=== PATIENT | female | born 1935 | race Caucasian/White ===

== ENCOUNTER 2025-01-09 15:45 | Emergency (ER) | payer MEDICARE ==
[~2025-01-09] VITALS: Ht 167.6 cm; Wt 81.6 kg
[2025-01-09 15:45] VITALS: TEMP 98.3
[2025-01-09] MEDS ORDERED: ACETAMINOPHEN ES 500 MG TABLET ONE (19:36)
[2025-01-09] MEDS: ACETAMINOPHEN 325 MG TABLET PO ONE (19:46)
[2025-01-09 20:25] VITALS: BP 132/80; O2SAT 98
== END 2025-01-09 20:26 | disposition home or self-care (01) ==
LOC: ER 16:02
DX: S16.1XXA Strain of muscle, fascia and tendon at neck level, initial encounter (principal); S80.02XA Contusion of left knee, initial encounter; S80.01XA Contusion of right knee, initial encounter; M47.812 Spondylosis without myelopathy or radiculopathy, cervical region; E03.9 Hypothyroidism, unspecified; Z88.2 Allergy status to sulfonamides; W01.0XXA Fall on same level from slipping, tripping and stumbling without subsequent striking against object, initial encounter; Y93.89 Activity, other specified; Y92.89 Other specified places as the place of occurrence of the external cause; Y99.8 Other external cause status
CPT/HCPCS: 70450-TC; 72125-TC; 72131-TC; 73564-TC; 73590-TC

== ENCOUNTER 2025-03-18 21:08 | Inpatient (IN) | payer MEDICARE ==
[~2025-03-18] VITALS: Ht 180.3 cm; Wt 99.8 kg
[2025-03-18] MEDS ORDERED: MORPHINE SULFATE INJ 2 MG/ML DISP.SYRIN ONE (21:18)
[2025-03-18] MEDS ORDERED: ONDANSETRON HCL/PF 4 MG/2 ML VIAL ONE ×2 (21:18→22:56)
[2025-03-18] MEDS: ONDANSETRON HCL/PF 4 MG/2 ML VIAL IVP ONE (21:22)
[2025-03-18] MEDS: IV NS 0.9% 500 ML BAG IV ONE (21:22)
[2025-03-18] MEDS: MORPHINE SULFATE INJ 2 MG/ML DISP.SYRIN IV ONE (21:22)
[2025-03-18 21:50] LABS: PLATELET COUNT (AUTO) 336 K/uL (150-450); RED BLOOD CELL COUNT(AUTO) 4.72 MIL/uL (4.0-5.2); RED CELL DISTRIBUTION WIDTH 14.3 % (11.5-15.0); WHITE BLOOD COUNT (AUTO) 15.0 K/uL (4.3-11.0)
[2025-03-18] MEDS ORDERED: Magnesium 1GM/D5W 100ML PREMIX 100 ML IV ONE ×2 (22:01→22:39)
[2025-03-18] MEDS ORDERED: DILTIAZEM HCL 50 MG IV ONE (22:02)
[2025-03-18 22:04] LABS: CALCIUM, SERUM 9.5 mg/dL (8.5-10.1); CREATININE 1.2 mg/dL (0.6-1.3); SODIUM SERUM 131 mmol/L (136-145); UREA NITROGEN, BLOOD 25 mg/dL (7-18)
[2025-03-18] MEDS: DILTIAZEM HCL 50 MG IV IV ONE (22:07)
[2025-03-18] MEDS: Magnesium 1GM/D5W 100ML PREMIX 200 ML IV ONE (22:08)
[2025-03-18 22:11] LABS: ASPARTATE AMINOTRANSFERASE 15 U/L (15-37); TOTAL PROTEIN, SERUM 8.3 g/dL (6.4-8.2)
[2025-03-18] MEDS ORDERED: HYDROMORPHONE 1 MG/1 ML DISP.SYRIN ONE (22:56)
[2025-03-18] MEDS ORDERED: PIPERACI/TAZO 3.375GM/D5W 50ML PB IV ONE (22:56)
[2025-03-18] MEDS: HYDROMORPHONE 1 MG/1 ML DISP.SYRIN IV ONE (23:02)
[2025-03-18] MEDS: ONDANSETRON HCL/PF - ER 4 MG/2 ML VIAL IV ONE (23:03)
[2025-03-18] MEDS ORDERED: AMIODARONE 150 MG/3 ML VIAL IV ONE (23:04)
[2025-03-18] MEDS: AMIODARONE 150 MG/3 ML VIAL IV ONE ×2 (23:15→23:30)
[2025-03-18] MEDS: PIPERACILLIN /TAZOBACTAM 3.375 G in IV D5W 50 ML IV ONE (23:48)
[2025-03-19] VITALS (19 sets, daily range): BP systolic 112–152; BP diastolic 61–97; TEMP 98–99.5; O2SAT 95–99
[2025-03-19 00:20] LABS: LACTIC ACID 2.1 mmol/L (0.4-2.0)
[2025-03-19 00:59] LABS: APPEARANCE,URINE CLEAR (CLEAR); BLOOD, URINE 1+ Ery/uL (NEGATIVE); LEUKOCYTE ESTERASE ,URINE NEGATIVE (NEGATIVE); NITRITE, URINE NEGATIVE (NEGATIVE); UGLUCOSE NEGATIVE (NEGATIVE)
[2025-03-19 01:16] LABS: ADD URINE CULTURE NO
[2025-03-19] MEDS ORDERED: ANESTHESIA TRAY IN PYXIS 1 EA TRAY MC ONE (01:37)
[2025-03-19] MEDS ORDERED: LIDOCAINE 1%-EPI 1:100,000 20 ML VIAL ONE (01:38)
[2025-03-19] MEDS ORDERED: BUPIVACAINE 0.5 % PF 150 MG/30 ML VIAL ONE (01:38)
[2025-03-19] MEDS ORDERED: SUGAMMADEX SODIUM 200 MG/2 ML VIAL IV ONE ×2 (01:55→04:02)
[2025-03-19] MEDS ORDERED: MIDAZOLAM HCL 2 MG/2ML VIAL ONE (01:55)
[2025-03-19] MEDS ORDERED: ROCURONIUM BROMIDE 50 MG/5 ML ONE ×2 (01:55→01:56)
[2025-03-19] MEDS ORDERED: FENTANYL PF 100MCG/2ML AMPUL ONE (01:55)
[2025-03-19] MEDS ORDERED: MORPHINE SULFATE INJ 4 MG/ML DISP.SYRIN ONE (01:57)
[2025-03-19] MEDS ORDERED: DOSING PER PHARMACY-AMIODARONE DRIP XX PRN (02:00)
[2025-03-19] MEDS ORDERED: Z GUARD REMEDY 4 OZ OINT TP PRN (02:00)
[2025-03-19] MEDS ORDERED: PIPERACI/TAZO 3.375GM/D5W 50ML PB IV ONE (02:06)
[2025-03-19 02:49] LABS: INR 0.97 (0.91-1.10)
[2025-03-19] MEDS ORDERED: ALBUMIN 5% 250 ML IV ONE (02:52)
[2025-03-19] MEDS ORDERED: MORPHINE SULFATE INJ 2 MG/ML DISP.SYRIN IV PRN ×2 (05:30)
[2025-03-19] MEDS: IV NS 0.9% 1,000 ML IV PRN ×2 (06:04→16:20)
[2025-03-19] MEDS: AMIODARONE 450 MG in IV D5W 241 ML IV PRN (06:53)
[2025-03-19] MEDS: PIPERACILLIN /TAZOBACTAM 3.375 G in IV D5W 50 ML IV SCH (07:37)
[2025-03-19] MEDS: IV NS 0.9% 500 ML IV ONE ×2 (08:10→13:57)
[2025-03-19] MEDS: PANTOPRAZOLE 40 MG VIAL IV SCH (08:13)
[2025-03-19] MEDS: MICAFUNGIN SODIUM 100 MG in IV NS 0.9% 100 ML IV SCH (08:14)
[2025-03-19] MEDS: MORPHINE SULFATE INJ 2 MG/ML DISP.SYRIN IV PRN ×2 (08:14→13:55)
[2025-03-19] MEDS ORDERED: FLUCONAZOLE IN NS,PREMIX 200 MG in PREMIX 1 EA IV SCH (09:00)
[2025-03-19 12:00] LABS: PLATELET COUNT (AUTO) 274 K/uL (150-450); RED BLOOD CELL COUNT(AUTO) 4.37 MIL/uL (4.0-5.2); RED CELL DISTRIBUTION WIDTH 14.0 % (11.5-15.0); WHITE BLOOD COUNT (AUTO) 13.0 K/uL (4.3-11.0)
[2025-03-19] MEDS: ONDANSETRON HCL/PF 4 MG/2 ML VIAL IVP PRN (12:10)
[2025-03-19 12:27] LABS: CALCIUM, SERUM 7.7 mg/dL (8.5-10.1); CREATININE 1.4 mg/dL (0.6-1.3); PHOSPHORUS 2.9 mg/dL (2.5-4.9); SODIUM SERUM 130.0 mmol/L (136-145); UREA NITROGEN, BLOOD 26.0 mg/dL (7-18)
[2025-03-19 13:01] LABS: CREATININE, URINE 112.6 MG/DL (30.0-125.0); URINE SODIUM, RANDOM 43.0 mmol/l (40-220); URINE TOTAL PROTEIN 204.3 mg/dL (0-11.9)
[2025-03-19] MEDS ORDERED: MONT10TA22 PO (13:21)
[2025-03-19] MEDS ORDERED: LEVO100T9 PO (13:21)
[2025-03-19] MEDS ORDERED: FOLI0.4T6 PO (13:21)
[2025-03-19] MEDS ORDERED: SUMA50TA PO (13:21)
[2025-03-19] MEDS ORDERED: MELO-107 PO (13:21)
[2025-03-19] MEDS ORDERED: SERT50TA PO (13:21)
[2025-03-19] MEDS ORDERED: PRED1TAB PO (13:21)
[2025-03-19] MEDS: ENOXAPARIN SODIUM 30 MG/0.3 ML DISP.SYRIN SQ SCH (20:59)
[2025-03-20] VITALS (36 sets, daily range): BP systolic 92–135; BP diastolic 51–103; TEMP 97.4–100.7; O2SAT 95–100
[2025-03-20] MEDS: ACETAMINOPHEN 650 MG/SUPP.RECT RC PRN (04:44)
[2025-03-20 05:27] LABS: PLATELET COUNT (AUTO) 272 K/uL (150-450); RED BLOOD CELL COUNT(AUTO) 3.99 MIL/uL (4.0-5.2); RED CELL DISTRIBUTION WIDTH 14.3 % (11.5-15.0); WHITE BLOOD COUNT (AUTO) 15.2 K/uL (4.3-11.0)
[2025-03-20 05:59] LABS: ASPARTATE AMINOTRANSFERASE 30.0 U/L (15-37); CALCIUM, SERUM 7.9 mg/dL (8.5-10.1); CREATININE 1.2 mg/dL (0.6-1.3); PHOSPHORUS 3.0 mg/dL (2.5-4.9); SODIUM SERUM 132.0 mmol/L (136-145); TOTAL PROTEIN, SERUM 6.1 g/dL (6.4-8.2); UREA NITROGEN, BLOOD 22.0 mg/dL (7-18)
[2025-03-20 06:01] LABS: CREATINE KINASE, TOTAL 553.0 U/L (26-192)
[2025-03-20] MEDS: IV D5/ 0.9% NACL 1,000 ML IV SCH (06:26)
[2025-03-20] MEDS: IV D5W 1,000 ML IV PRN (08:56)
[2025-03-20] MEDS: AMIODARONE 450 MG in IV D5W 241 ML IV PRN (11:06)
[2025-03-20] MEDS: METOPROLOL TARTRATE INJ 5 MG/5 ML AMPUL IVP ONE (13:36)
[2025-03-20] MEDS ORDERED: LEVOTHYROXINE INJ 500 MCG VIAL IV SCH (19:30)
[2025-03-20] MEDS: DIGOXIN INJ 0.5 MG/2 ML AMPUL IV ONE (22:10)
[2025-03-21] VITALS (27 sets, daily range): BP systolic 118–169; BP diastolic 51–75; TEMP 97.7–98.2; O2SAT 97–100
[2025-03-21 08:07] LABS: PTH, INTACT 75 pg/mL (15-65)
[2025-03-21] MEDS: LEVOTHYROXINE INJ 100 MCG VIAL IV SCH (08:31)
[2025-03-21] MEDS ORDERED: DEXTROSE 50%-WATER 50 ML DISP.SYRIN IV PRN (10:00)
[2025-03-21] MEDS ORDERED: TPN/PPN PER PHARMACY IV PRN (10:00)
[2025-03-21] MEDS: PPN #1 IV SCH (11:35)
[2025-03-21] MEDS: BLOOD SUGAR DIAGNOSTIC 1 EACH STRIP IN SCH (11:36)
[2025-03-21 12:13] LABS: PLATELET COUNT (AUTO) 196 K/uL (150-450); RED BLOOD CELL COUNT(AUTO) 3.81 MIL/uL (4.0-5.2); RED CELL DISTRIBUTION WIDTH 15.2 % (11.5-15.0); WHITE BLOOD COUNT (AUTO) 11.5 K/uL (4.3-11.0)
[2025-03-21 12:36] LABS: ASPARTATE AMINOTRANSFERASE 26.0 U/L (15-37); CALCIUM, SERUM 8.1 mg/dL (8.5-10.1); CREATININE 1.4 mg/dL (0.6-1.3); PHOSPHORUS 2.5 mg/dL (2.5-4.9); SODIUM SERUM 133.0 mmol/L (136-145); TOTAL PROTEIN, SERUM 5.9 g/dL (6.4-8.2); UREA NITROGEN, BLOOD 20.0 mg/dL (7-18)
[2025-03-21 18:52] LABS: HIV-1/2 ANTIBODY NON REACTIVE (NONREACTIVE)
[2025-03-21] MEDS: DICLOFENAC TOPICAL 100 GM TUBE TP PRN (20:46)
[2025-03-21] MEDS: hydrALAZINE HCL IV 20 MG VIAL IV PRN (21:39)
[2025-03-22] VITALS (32 sets, daily range): BP systolic 87–176; BP diastolic 52–152; TEMP 97.9–98.9; O2SAT 97–100
[2025-03-22 03:54] LABS: PLATELET COUNT (AUTO) 270 K/uL (150-450); RED BLOOD CELL COUNT(AUTO) 3.63 MIL/uL (4.0-5.2); RED CELL DISTRIBUTION WIDTH 14.1 % (11.5-15.0); WHITE BLOOD COUNT (AUTO) 11.1 K/uL (4.3-11.0)
[2025-03-22 04:09] LABS: ASPARTATE AMINOTRANSFERASE 17.0 U/L (15-37); CALCIUM, SERUM 8.3 mg/dL (8.5-10.1); CREATININE 1.2 mg/dL (0.6-1.3); PHOSPHORUS 2.1 mg/dL (2.5-4.9); SODIUM SERUM 133.0 mmol/L (136-145); TOTAL PROTEIN, SERUM 6.1 g/dL (6.4-8.2); UREA NITROGEN, BLOOD 20.0 mg/dL (7-18)
[2025-03-22] MEDS: IV NS 0.9% 250 ML IV PRN (05:56)
[2025-03-22] MEDS ORDERED: PPN BAG #2 IV SCH (12:47)
[2025-03-22] MEDS: PPN BAG #2 IV SCH (12:54)
[2025-03-22] MEDS: POTASSIUM CL. PREMIX PERIPHER. 50 ML IV SCH (13:32)
[2025-03-22] MEDS: Sodium Phosphate 15 MMOL in IV NS 0.9% 245 ML IV SCH (14:48)
[2025-03-22] MEDS: FAT EMULSION 20% 500 ML in PREMIX 1 EA IV SCH (16:19)
[2025-03-23] VITALS (33 sets, daily range): BP systolic 108–172; BP diastolic 49–93; TEMP 97–98.9; O2SAT 96–100
[2025-03-23 03:42] LABS: PLATELET COUNT (AUTO) 305 K/uL (150-450); RED BLOOD CELL COUNT(AUTO) 3.65 MIL/uL (4.0-5.2); RED CELL DISTRIBUTION WIDTH 14.1 % (11.5-15.0); WHITE BLOOD COUNT (AUTO) 8.3 K/uL (4.3-11.0)
[2025-03-23 03:58] LABS: CALCIUM, SERUM 8.4 mg/dL (8.5-10.1); CREATININE 1.2 mg/dL (0.6-1.3); PHOSPHORUS 2.6 mg/dL (2.5-4.9); SODIUM SERUM 136.0 mmol/L (136-145); UREA NITROGEN, BLOOD 18.0 mg/dL (7-18)
[2025-03-23] MEDS: ENOXAPARIN SODIUM 40 MG/0.4 ML DISP.SYRIN SQ SCH (08:18)
[2025-03-23] MEDS: AMIODARONE 450 MG in IV D5W 241 ML IV PRN ×2 (09:00→09:53)
[2025-03-23] MEDS: POTASSIUM CL. PREMIX PERIPHER. 50 ML IV SCH ×2 (09:31→21:00)
[2025-03-23] MEDS: AMIODARONE 150 MG in IV D5W 100 ML IV ONE (09:38)
[2025-03-23] MEDS: PPN BAG #3 IV SCH (10:11)
[2025-03-23] MEDS ORDERED: DILTIAZEM HCL IV 125 MG in IV NS 0.9% 100 ML IV PRN (11:30)
[2025-03-23] MEDS: DIGOXIN INJ 0.5 MG/2 ML AMPUL IV ONE (11:30)
[2025-03-23] MEDS: DILTIAZEM HCL 25 MG IV IV ONE (11:30)
[2025-03-23] MEDS: ALBUTEROL FS 2.5 MG/3 ML VIAL.NEB NEB PRN (15:52)
[2025-03-23] MEDS: IPRATROPIUM NEB FS 0.5 MG/2.5 ML AMPUL.NEB NEB PRN (15:53)
[2025-03-23] MEDS: FUROSEMIDE 20 MG/2 ML VIAL IV ONE (15:53)
[2025-03-23] MEDS ORDERED: IPRATROPIUM NEB FS 0.5 MG/2.5 ML AMPUL.NEB NEB PRN (16:00)
[2025-03-23] MEDS: METOPROLOL TARTRATE INJ 5 MG/5 ML AMPUL IVP SCH (17:30)
[2025-03-24] VITALS (24 sets, daily range): BP systolic 142–176; BP diastolic 57–79; TEMP 98–98.8; O2SAT 97–100
[2025-03-24] MEDS: PPN BAG #4 IV SCH (03:28)
[2025-03-24 04:26] LABS: PLATELET COUNT (AUTO) 344 K/uL (150-450); RED BLOOD CELL COUNT(AUTO) 3.54 MIL/uL (4.0-5.2); RED CELL DISTRIBUTION WIDTH 14.2 % (11.5-15.0); WHITE BLOOD COUNT (AUTO) 7.6 K/uL (4.3-11.0)
[2025-03-24 04:38] LABS: CALCIUM, SERUM 8.7 mg/dL (8.5-10.1); CREATININE 1.5 mg/dL (0.6-1.3); PHOSPHORUS 2.7 mg/dL (2.5-4.9); SODIUM SERUM 138.0 mmol/L (136-145); UREA NITROGEN, BLOOD 27.0 mg/dL (7-18)
[2025-03-24] MEDS: FUROSEMIDE 20 MG/2 ML VIAL IV ONE (11:29)
[2025-03-24] MEDS ORDERED: DIATR MEGLU/DIATRIZOATE SODIUM 120 ML BOTTLE (GASTROGRAPHIN) ONE (12:24)
[2025-03-24] MEDS: PIPERACILLIN /TAZOBACTAM 3.375 G in IV D5W 100 ML IV SCH (12:25)
[2025-03-24 14:56] LABS: CALCIUM, SERUM 9.0 mg/dL (8.5-10.1); CREATININE 1.4 mg/dL (0.6-1.3); PHOSPHORUS 2.5 mg/dL (2.5-4.9); SODIUM SERUM 137.0 mmol/L (136-145); UREA NITROGEN, BLOOD 32.0 mg/dL (7-18)
[2025-03-24] MEDS: PPN #5 IV SCH (16:02)
[2025-03-24] MEDS: INSULIN REGULAR, HUMAN 100 UNIT/ML 3 ML VIAL SQ PRN (17:08)
[2025-03-24] MEDS: POTASSIUM CL. PREMIX PERIPHER. 50 ML IV SCH (19:10)
[2025-03-24] MEDS ORDERED: POTASSIUM CL. PREMIX PERIPHER. 50 ML IV SCH (20:00)
[2025-03-25] VITALS (27 sets, daily range): BP systolic 98–162; BP diastolic 57–142; TEMP 97.8–99; O2SAT 94–100
[2025-03-25 04:34] LABS: PLATELET COUNT (AUTO) 402 K/uL (150-450); RED BLOOD CELL COUNT(AUTO) 3.62 MIL/uL (4.0-5.2); RED CELL DISTRIBUTION WIDTH 14.5 % (11.5-15.0); WHITE BLOOD COUNT (AUTO) 10.0 K/uL (4.3-11.0)
[2025-03-25 05:11] LABS: CALCIUM, SERUM 9.1 mg/dL (8.5-10.1); CREATININE 1.3 mg/dL (0.6-1.3); PHOSPHORUS 2.0 mg/dL (2.5-4.9); SODIUM SERUM 137.0 mmol/L (136-145); UREA NITROGEN, BLOOD 37.0 mg/dL (7-18)
[2025-03-25 06:07] LABS: *SPE A/G RATIO 1.1 (0.7-1.7); *SPE ALBUMIN 2.6 g/dL (2.9-4.4); *SPE ALPHA-1-GLOBULIN 0.4 g/dL (0.0-0.4); *SPE ALPHA-2-GLOBULIN 0.8 g/dL (0.4-1.0); *SPE BETA GLOBULIN 0.7 g/dL (0.7-1.3); *SPE GLOBULIN, TOTAL 2.4 g/dL (2.2-3.9); *SPE M-SPIKE Not Observed g/dL (Not Observed); *SPE PROTEIN TOTAL 5.0 g/dL (6.0-8.5); *SPEGAMMA GLOBULIN 0.4 g/dL (0.4-1.8)
[2025-03-25] MEDS: Sodium Phosphate 15 MMOL in IV NS 0.9% 245 ML IV ONE (12:46)
[2025-03-25] MEDS: FUROSEMIDE 20 MG/2 ML VIAL IV STA (12:51)
[2025-03-25] MEDS ORDERED: POTASSIUM CL. PREMIX PERIPHER. 50 ML IV SCH (14:00)
[2025-03-25] MEDS: PPN #6 IV SCH (14:12)
[2025-03-25] MEDS: LEVALBUTEROL HCL NEB 1.25 MG/0.5 ML VIAL.NEB NEB SCH (14:47)
[2025-03-25] MEDS: IPRATROPIUM NEB FS 0.5 MG/2.5 ML AMPUL.NEB NEB SCH (14:47)
[2025-03-25 15:49] LABS: CALCIUM, SERUM 8.5 mg/dL (8.5-10.1); CREATININE 1.3 mg/dL (0.6-1.3); PHOSPHORUS 2.9 mg/dL (2.5-4.9); SODIUM SERUM 133.0 mmol/L (136-145); UREA NITROGEN, BLOOD 41.0 mg/dL (7-18)
[2025-03-25] MEDS ORDERED: AMIODARONE 150 MG in IV D5W 100 ML IV ONE (17:00)
[2025-03-25] MEDS: POTASSIUM CL. PREMIX PERIPHER. 50 ML IV SCH ×2 (17:26→19:45)
[2025-03-25] MEDS: AMIODARONE 450 MG in IV D5W 241 ML IV PRN (18:49)
[2025-03-26] VITALS (33 sets, daily range): BP systolic 112–184; BP diastolic 48–109; TEMP 97.4–98.1; O2SAT 92–100
[2025-03-26 04:44] LABS: PLATELET COUNT (AUTO) 425 K/uL (150-450); RED BLOOD CELL COUNT(AUTO) 3.46 MIL/uL (4.0-5.2); RED CELL DISTRIBUTION WIDTH 14.3 % (11.5-15.0); WHITE BLOOD COUNT (AUTO) 11.5 K/uL (4.3-11.0)
[2025-03-26 05:03] LABS: CALCIUM, SERUM 8.6 mg/dL (8.5-10.1); CREATININE 1.4 mg/dL (0.6-1.3); PHOSPHORUS 2.7 mg/dL (2.5-4.9); SODIUM SERUM 131.0 mmol/L (136-145); UREA NITROGEN, BLOOD 49.0 mg/dL (7-18)
[2025-03-26] MEDS: POTASSIUM CL. PREMIX PERIPHER. 50 ML IV SCH (08:05)
[2025-03-26] MEDS: PPN #7 IV SCH (14:32)
[2025-03-26] MEDS: FUROSEMIDE 20 MG/2 ML VIAL IV STA (16:34)
[2025-03-26] MEDS: METOPROLOL TARTRATE INJ 5 MG/5 ML AMPUL IVP ONE (20:34)
[2025-03-26 21:36] LABS: CALCIUM, SERUM 8.7 mg/dL (8.5-10.1); CREATININE 1.6 mg/dL (0.6-1.3); SODIUM SERUM 129.0 mmol/L (136-145); UREA NITROGEN, BLOOD 50.0 mg/dL (7-18)
[2025-03-27] VITALS (32 sets, daily range): BP systolic 104–166; BP diastolic 48–72; TEMP 97–98.9; O2SAT 93–100
[2025-03-27 05:19] LABS: CALCIUM, SERUM 8.4 mg/dL (8.5-10.1); CREATININE 1.7 mg/dL (0.6-1.3); PHOSPHORUS 2.6 mg/dL (2.5-4.9); SODIUM SERUM 125.0 mmol/L (136-145); UREA NITROGEN, BLOOD 57.0 mg/dL (7-18)
[2025-03-27 07:25] LABS: PLATELET COUNT (AUTO) 499 K/uL (150-450); RED BLOOD CELL COUNT(AUTO) 3.63 MIL/uL (4.0-5.2); RED CELL DISTRIBUTION WIDTH 14.4 % (11.5-15.0); WHITE BLOOD COUNT (AUTO) 11.0 K/uL (4.3-11.0)
[2025-03-27] MEDS: POTASSIUM CL. PREMIX PERIPHER. 50 ML IV SCH (11:02)
[2025-03-27] MEDS: PPN #8 IV SCH (11:31)
[2025-03-27] MEDS ORDERED: DIATR MEGLU/DIATRIZOATE SODIUM 120 ML BOTTLE (GASTROGRAPHIN) ONE ×2 (12:39→13:32)
[2025-03-27 16:34] LABS: APPEARANCE,URINE SLIGHTLY CLOUDY (CLEAR)
[2025-03-27 16:44] LABS: SQUAMOUS EPITHELIAL CELL,UR 0-2 /HPF (None Seen)
[2025-03-27] MEDS: Magnesium 1GM/D5W 100ML PREMIX 100 ML IV SCH (17:08)
[2025-03-27 18:10] LABS: EOSINOPHIL,URINE None Seen
[2025-03-28] VITALS (29 sets, daily range): BP systolic 107–158; BP diastolic 57–106; TEMP 97.9–98.8; O2SAT 95–100
[2025-03-28 04:47] LABS: PLATELET COUNT (AUTO) 513 K/uL (150-450); RED BLOOD CELL COUNT(AUTO) 3.70 MIL/uL (4.0-5.2); RED CELL DISTRIBUTION WIDTH 14.3 % (11.5-15.0); WHITE BLOOD COUNT (AUTO) 10.6 K/uL (4.3-11.0)
[2025-03-28 05:00] LABS: CALCIUM, SERUM 8.9 mg/dL (8.5-10.1); CREATININE 1.4 mg/dL (0.6-1.3); PHOSPHORUS 2.5 mg/dL (2.5-4.9); SODIUM SERUM 130.0 mmol/L (136-145); UREA NITROGEN, BLOOD 52.0 mg/dL (7-18)
[2025-03-28 06:18] LABS: EOSINOPHILS % (MANUAL) 4 % (0-4); LYMPHOCYTES % (MANUAL) 5 % (16-48); MONOCYTES % (MANUAL) 4 % (0-11.0); NEUTROPHILS % (MANUAL) 87 (42-76)
[2025-03-28 06:33] LABS: PLATELET ESTIMATE INCREASED
[2025-03-28 07:14] LABS: CREATININE, URINE 19.7 MG/DL (30.0-125.0); URINE SODIUM, RANDOM 11.0 mmol/l (40-220); URINE TOTAL PROTEIN 35.9 mg/dL (0-11.9)
[2025-03-28] MEDS: PPN BAG #9 IV SCH (09:49)
[2025-03-28] MEDS: POTASSIUM CL. PREMIX PERIPHER. 50 ML IV SCH (15:29)
[2025-03-28] MEDS: METOPROLOL TARTRATE 25 MG TABLET PO SCH (15:30)
[2025-03-28] MEDS ORDERED: POTASSIUM CL. PREMIX PERIPHER. 50 ML IV ONE (17:00)
[2025-03-28] MEDS: PPN BAG #10 IV SCH (21:43)
[2025-03-29] VITALS (14 sets, daily range): BP systolic 129–158; BP diastolic 69–89; TEMP 97.9–98.7; O2SAT 96–100
[2025-03-29 07:01] LABS: PLATELET COUNT (AUTO) 586 K/uL (150-450); RED BLOOD CELL COUNT(AUTO) 3.44 MIL/uL (4.0-5.2); RED CELL DISTRIBUTION WIDTH 14.4 % (11.5-15.0); WHITE BLOOD COUNT (AUTO) 11.8 K/uL (4.3-11.0)
[2025-03-29 07:08] LABS: CALCIUM, SERUM 9.0 mg/dL (8.5-10.1); CREATININE 1.3 mg/dL (0.6-1.3); PHOSPHORUS 1.6 mg/dL (2.5-4.9); SODIUM SERUM 133.0 mmol/L (136-145); UREA NITROGEN, BLOOD 45.0 mg/dL (7-18)
[2025-03-29] MEDS: POTASSIUM CL. PREMIX PERIPHER. 50 ML IV SCH (10:00)
[2025-03-29] MEDS ORDERED: POTASSIUM CL. PREMIX PERIPHER. 50 ML IV SCH (10:00)
[2025-03-29] MEDS ORDERED: POTASSIUM PHOSPHATE MM 7.5 MMOL in IV NS 0.9% 100 ML IV SCH (10:00)
[2025-03-29] MEDS: Sodium Phosphate 15 MMOL in IV NS 0.9% 245 ML IV SCH (11:25)
[2025-03-29] MEDS: PPN BAG #11 IV SCH (20:00)
[2025-03-29] MEDS: Magnesium 1GM/D5W 100ML PREMIX 100 ML IV SCH (22:54)
[2025-03-30] VITALS (14 sets, daily range): BP systolic 118–152; BP diastolic 67–80; TEMP 97.7–98.6; O2SAT 96–100
[2025-03-30 07:28] LABS: PLATELET COUNT (AUTO) 609 K/uL (150-450); RED BLOOD CELL COUNT(AUTO) 3.72 MIL/uL (4.0-5.2); RED CELL DISTRIBUTION WIDTH 14.3 % (11.5-15.0); WHITE BLOOD COUNT (AUTO) 11.0 K/uL (4.3-11.0)
[2025-03-30 08:25] LABS: CALCIUM, SERUM 8.7 mg/dL (8.5-10.1); CREATININE 1.2 mg/dL (0.6-1.3); SODIUM SERUM 133.0 mmol/L (136-145); UREA NITROGEN, BLOOD 40.0 mg/dL (7-18)
[2025-03-30 08:26] LABS: PHOSPHORUS 3.4 mg/dL (2.5-4.9)
[2025-03-30] MEDS: MICAFUNGIN SODIUM 100 MG in IV NS 0.9% 100 ML IV SCH (08:50)
[2025-03-30] MEDS ORDERED: FLUCONAZOLE IN NS,PREMIX 200 MG in PREMIX 1 EA IV SCH (09:00)
[2025-03-30] MEDS ORDERED: POTASSIUM CL. PREMIX PERIPHER. 50 ML IV SCH (11:00)
[2025-03-30] MEDS: POTASSIUM CL. PREMIX PERIPHER. 50 ML IV SCH (11:23)
[2025-03-30] MEDS ORDERED: oxyCODONE IR immediate release 5 MG TABLET PO PRN (15:30)
[2025-03-30] MEDS: GUAIFENESIN/D-METHORPHAN HB 5 ML UDC PO PRN (16:00)
[2025-03-30] MEDS: PPN #12 IV SCH (20:59)
[2025-03-31] VITALS (13 sets, daily range): BP systolic 122–139; BP diastolic 54–92; TEMP 97.9–99.3; O2SAT 97–100
[2025-03-31 07:57] LABS: PHOSPHORUS 2.7 mg/dL (2.5-4.9)
[2025-03-31 11:12] LABS: CALCIUM, SERUM 8.5 mg/dL (8.5-10.1); CREATININE 1.2 mg/dL (0.6-1.3); SODIUM SERUM 133.0 mmol/L (136-145); UREA NITROGEN, BLOOD 36.0 mg/dL (7-18)
[2025-03-31] MEDS: POTASSIUM CL. PREMIX PERIPHER. 50 ML IV SCH (13:28)
[2025-03-31] MEDS ORDERED: POTASSIUM CHLORIDE 20 MEQ TAB.PRT.SR PO ONE (13:30)
[2025-03-31] MEDS: ACETAMINOPHEN 325 MG TABLET PO PRN (14:06)
[2025-03-31] MEDS: MAG HYDROX/AL HYDROX/SIMETH 30 ML UDC PO PRN (17:57)
[2025-03-31] MEDS: PPN #13 IV SCH (20:14)
[2025-04-01] VITALS (14 sets, daily range): BP systolic 105–140; BP diastolic 57–75; TEMP 98.1–99.1; O2SAT 98–100
[2025-04-01 07:16] LABS: PLATELET COUNT (AUTO) 515 K/uL (150-450); RED BLOOD CELL COUNT(AUTO) 3.10 MIL/uL (4.0-5.2); RED CELL DISTRIBUTION WIDTH 14.6 % (11.5-15.0); WHITE BLOOD COUNT (AUTO) 11.5 K/uL (4.3-11.0)
[2025-04-01 07:44] LABS: ASPARTATE AMINOTRANSFERASE 21.0 U/L (15-37); CALCIUM, SERUM 8.2 mg/dL (8.5-10.1); CREATININE 1.2 mg/dL (0.6-1.3); PHOSPHORUS 2.5 mg/dL (2.5-4.9); TOTAL PROTEIN, SERUM 5.6 g/dL (6.4-8.2); UREA NITROGEN, BLOOD 34.0 mg/dL (7-18)
[2025-04-01 08:24] LABS: SODIUM SERUM 133.0 mmol/L (136-145)
[2025-04-01] MEDS: POTASSIUM CL. PREMIX PERIPHER. 50 ML IV SCH ×2 (11:03→20:16)
[2025-04-01] MEDS: METOPROLOL TARTRATE INJ 5 MG/5 ML AMPUL IVP ONE (11:38)
[2025-04-01] MEDS: POTASSIUM CHLORIDE 20 MEQ POWDER PACKET PO ONE (12:22)
[2025-04-01] MEDS: Sodium Phosphate 15 MMOL in IV NS 0.9% 245 ML IV SCH (13:14)
[2025-04-01] MEDS: MAGNESIUM HYDROXIDE 30 ML UDC PO PRN (13:22)
[2025-04-01] MEDS ORDERED: POTASSIUM CL. PREMIX PERIPHER. 50 ML IV SCH (14:30)
[2025-04-01 18:32] LABS: CALCIUM, SERUM 8.2 mg/dL (8.5-10.1); CREATININE 1.1 mg/dL (0.6-1.3); SODIUM SERUM 133.0 mmol/L (136-145); UREA NITROGEN, BLOOD 34.0 mg/dL (7-18)
[2025-04-01] MEDS: PPN #14 IV SCH (19:53)
[2025-04-02] VITALS (14 sets, daily range): BP systolic 123–151; BP diastolic 57–82; TEMP 97.5–98.8; O2SAT 98–100
[2025-04-02 00:59] LABS: PHOSPHORUS 2.7 mg/dL (2.5-4.9)
[2025-04-02 06:48] LABS: PLATELET COUNT (AUTO) 595 K/uL (150-450); RED BLOOD CELL COUNT(AUTO) 3.14 MIL/uL (4.0-5.2); RED CELL DISTRIBUTION WIDTH 14.4 % (11.5-15.0); WHITE BLOOD COUNT (AUTO) 10.7 K/uL (4.3-11.0)
[2025-04-02 07:30] LABS: CALCIUM, SERUM 8.5 mg/dL (8.5-10.1); CREATININE 1.3 mg/dL (0.6-1.3); PHOSPHORUS 2.2 mg/dL (2.5-4.9); SODIUM SERUM 139.0 mmol/L (136-145); UREA NITROGEN, BLOOD 31.0 mg/dL (7-18)
[2025-04-02] MEDS: POTASSIUM PHOSPHATE MM 7.5 MMOL in IV NS 0.9% 100 ML IV SCH (10:31)
[2025-04-02] MEDS: POTASSIUM CHLORIDE 20 MEQ POWDER PACKET GT ONE (12:32)
[2025-04-02] MEDS: BISACODYL SUPP (10 MG) 10 MG/SUPP.RECT SUPP.RECT RC SCH (12:38)
[2025-04-02] MEDS: ENSURE CLEAR 237 ML LIQUID (MIX BERRY) PO SCH (12:40)
[2025-04-02 16:40] LABS: CALCIUM, SERUM 8.2 mg/dL (8.5-10.1); CREATININE 1.1 mg/dL (0.6-1.3); SODIUM SERUM 140.0 mmol/L (136-145); UREA NITROGEN, BLOOD 31.0 mg/dL (7-18)
[2025-04-02] MEDS: PPN #15 IV SCH (19:47)
[2025-04-03] VITALS (14 sets, daily range): BP systolic 128–164; BP diastolic 69–83; TEMP 97.7–99; O2SAT 97–100
[2025-04-03 06:49] LABS: PLATELET COUNT (AUTO) 547 K/uL (150-450); RED BLOOD CELL COUNT(AUTO) 2.95 MIL/uL (4.0-5.2); RED CELL DISTRIBUTION WIDTH 14.4 % (11.5-15.0); WHITE BLOOD COUNT (AUTO) 11.6 K/uL (4.3-11.0)
[2025-04-03 07:53] LABS: CALCIUM, SERUM 8.5 mg/dL (8.5-10.1); CREATININE 1.0 mg/dL (0.6-1.3); PHOSPHORUS 2.4 mg/dL (2.5-4.9); SODIUM SERUM 140.0 mmol/L (136-145); UREA NITROGEN, BLOOD 30.0 mg/dL (7-18)
[2025-04-03] MEDS: POTASSIUM CL. PREMIX PERIPHER. 50 ML IV SCH ×2 (12:32→22:30)
[2025-04-03] MEDS: DOCUSATE SODIUM 100 MG CAPSULE PO SCH (15:12)
[2025-04-03] MEDS: SENNOSIDES/DOCUSATE SODIUM 1 TAB TABLET PO SCH (15:12)
[2025-04-03] MEDS ORDERED: IOHEXOL-300 100 ML VIAL IV ONE (15:37)
[2025-04-03] MEDS ORDERED: IV NS 0.9% 250 ML IV ONE (15:37)
[2025-04-03] MEDS ORDERED: CT SWABBABLE VALVE TRANS SET 1 EA INFUS.SET MC ONE (15:37)
[2025-04-03] MEDS: PPN #16 IV SCH (16:41)
[2025-04-03] MEDS: POTASSIUM PHOSPHATE MM 7.5 MMOL in IV NS 0.9% 100 ML IV SCH (16:41)
[2025-04-03] MEDS: METOCLOPRAMIDE HCL 10 MG/2 ML VIAL IV SCH (18:34)
[2025-04-04] VITALS (15 sets, daily range): BP systolic 128–162; BP diastolic 77–93; TEMP 97.8–98.3; O2SAT 96–100
[2025-04-04] MEDS: BISACODYL SUPP (10 MG) 10 MG/SUPP.RECT SUPP.RECT RC SCH (06:19)
[2025-04-04 07:47] LABS: CALCIUM, SERUM 8.8 mg/dL (8.5-10.1); CREATININE 1.2 mg/dL (0.6-1.3); SODIUM SERUM 142.0 mmol/L (136-145); UREA NITROGEN, BLOOD 30.0 mg/dL (7-18)
[2025-04-04 08:14] LABS: PLATELET COUNT (AUTO) 517 K/uL (150-450); RED BLOOD CELL COUNT(AUTO) 3.10 MIL/uL (4.0-5.2); RED CELL DISTRIBUTION WIDTH 14.4 % (11.5-15.0); WHITE BLOOD COUNT (AUTO) 11.1 K/uL (4.3-11.0)
[2025-04-04] MEDS: LORAZEPAM 0.5 MG TABLET PO PRN (09:10)
[2025-04-04] MEDS: POTASSIUM CL. PREMIX PERIPHER. 50 ML IV SCH (10:25)
[2025-04-04 12:04] LABS: PHOSPHORUS 2.4 mg/dL (2.5-4.9)
[2025-04-04] MEDS ORDERED: POTASSIUM PHOSPHATE MM 7.5 MMOL in IV NS 0.9% 100 ML IV SCH (14:00)
[2025-04-04] MEDS ORDERED: oxyCODONE IR immediate release 5 MG TABLET PO PRN (15:30)
[2025-04-04] MEDS: PPN #17 IV SCH (16:10)
[2025-04-04] MEDS: SENNOSIDES/DOCUSATE SODIUM 1 TAB TABLET PO SCH (17:55)
[2025-04-04] MEDS: POTASSIUM CHLORIDE 10 MEQ/50 ML PREMIXED IVPB FOR PERIPHERAL LINE IV SCH (19:54)
[2025-04-04] MEDS: POTASSIUM PHOSPHATE MM 5 MMOL in IV NS 0.9% 100 ML IV SCH (19:59)
[2025-04-04] MEDS: PANTOPRAZOLE 40 MG TABLET.DR PO SCH (22:42)
[2025-04-05] VITALS (9 sets, daily range): BP systolic 143–169; BP diastolic 80–102; TEMP 98.1–100.2; O2SAT 97–100
[2025-04-05] MEDS: METOPROLOL TARTRATE INJ 5 MG/5 ML AMPUL IVP PRN (08:05)
[2025-04-05 08:35] LABS: PLATELET COUNT (AUTO) 512 K/uL (150-450); RED BLOOD CELL COUNT(AUTO) 3.34 MIL/uL (4.0-5.2); RED CELL DISTRIBUTION WIDTH 14.5 % (11.5-15.0); WHITE BLOOD COUNT (AUTO) 12.4 K/uL (4.3-11.0)
[2025-04-05 08:47] LABS: CALCIUM, SERUM 8.9 mg/dL (8.5-10.1); CREATININE 1.2 mg/dL (0.6-1.3); PHOSPHORUS 2.1 mg/dL (2.5-4.9); SODIUM SERUM 139.0 mmol/L (136-145); UREA NITROGEN, BLOOD 31.0 mg/dL (7-18)
[2025-04-05] MEDS: POTASSIUM CL. PREMIX PERIPHER. 50 ML IV SCH (09:34)
[2025-04-05] MEDS: Magnesium 1GM/D5W 100ML PREMIX 100 ML IV SCH (10:23)
[2025-04-05] MEDS: POTASSIUM PHOSPHATE MM 7.5 MMOL in IV NS 0.9% 100 ML IV SCH (13:04)
[2025-04-05] MEDS: PPN IV SCH (15:13)
[2025-04-05] MEDS ORDERED: IV NS 0.9% 250 ML IV ONE (16:59)
[2025-04-05] MEDS ORDERED: IOHEXOL-300 100 ML VIAL IV ONE (16:59)
[2025-04-05] MEDS: METOCLOPRAMIDE HCL 10 MG/2 ML VIAL IV SCH (18:03)
[2025-04-05] MEDS: MORPHINE SULFATE INJ 2 MG/ML DISP.SYRIN IV PRN (21:19)
[2025-04-06] VITALS (12 sets, daily range): BP systolic 81–184; BP diastolic 60–97; TEMP 97.5–99.3; O2SAT 96–100
[2025-04-06 07:52] LABS: CALCIUM, SERUM 8.8 mg/dL (8.5-10.1); CREATININE 1.1 mg/dL (0.6-1.3); PHOSPHORUS 2.3 mg/dL (2.5-4.9); SODIUM SERUM 138.0 mmol/L (136-145); UREA NITROGEN, BLOOD 33.0 mg/dL (7-18)
[2025-04-06 07:55] LABS: PLATELET COUNT (AUTO) 507 K/uL (150-450); RED BLOOD CELL COUNT(AUTO) 3.71 MIL/uL (4.0-5.2); RED CELL DISTRIBUTION WIDTH 14.5 % (11.5-15.0); WHITE BLOOD COUNT (AUTO) 14.0 K/uL (4.3-11.0)
[2025-04-06] MEDS: METOPROLOL TARTRATE INJ 5 MG/5 ML AMPUL IVP ONE (08:11)
[2025-04-06] MEDS ORDERED: DILTIAZEM HCL IV 125 MG in IV NS 0.9% 100 ML IV PRN ×2 (09:00→09:30)
[2025-04-06] MEDS: POTASSIUM PHOSPHATE MM 7.5 MMOL in IV NS 0.9% 100 ML IV SCH (09:47)
[2025-04-06 12:14] LABS: LYMPHOCYTES % (MANUAL) 8 % (16-48); NEUTROPHILS % (MANUAL) 84 (42-76)
[2025-04-06 12:15] LABS: EOSINOPHILS % (MANUAL) 6 % (0-4); MONOCYTES % (MANUAL) 2 % (0-11.0); PLATELET ESTIMATE INCREASED
[2025-04-06] MEDS: PPN IV SCH (13:08)
[2025-04-06] MEDS: METOPROLOL TARTRATE INJ 5 MG/5 ML AMPUL IVP PRN (14:21)
[2025-04-06] MEDS: POTASSIUM CL. PREMIX PERIPHER. 50 ML IV SCH (16:15)
[2025-04-06] MEDS: Magnesium 1GM/D5W 100ML PREMIX 100 ML IV SCH (21:24)
[2025-04-06] MEDS: DIGOXIN INJ 0.5 MG/2 ML AMPUL IV ONE (23:16)
[2025-04-06 23:43] LABS: CALCIUM, SERUM 8.5 mg/dL (8.5-10.1); CREATININE 1.0 mg/dL (0.6-1.3); SODIUM SERUM 137.0 mmol/L (136-145); UREA NITROGEN, BLOOD 35.0 mg/dL (7-18)
[2025-04-07] VITALS (34 sets, daily range): BP systolic 79–113; BP diastolic 54–91; TEMP 97.6–98.5; O2SAT 98–100
[2025-04-07] MEDS: POTASSIUM CL. PREMIX PERIPHER. 50 ML IV SCH (01:35)
[2025-04-07 04:49] LABS: PLATELET COUNT (AUTO) 470 K/uL (150-450); RED BLOOD CELL COUNT(AUTO) 3.26 MIL/uL (4.0-5.2); RED CELL DISTRIBUTION WIDTH 14.6 % (11.5-15.0); WHITE BLOOD COUNT (AUTO) 12.5 K/uL (4.3-11.0)
[2025-04-07 05:37] LABS: CALCIUM, SERUM 8.8 mg/dL (8.5-10.1); CREATININE 1.1 mg/dL (0.6-1.3); PHOSPHORUS 2.3 mg/dL (2.5-4.9); SODIUM SERUM 142.0 mmol/L (136-145); UREA NITROGEN, BLOOD 36.0 mg/dL (7-18)
[2025-04-07] MEDS: DIGOXIN INJ 0.5 MG/2 ML AMPUL IV ONE (05:44)
[2025-04-07] MEDS: POTASSIUM PHOSPHATE MM 7.5 MMOL in IV NS 0.9% 100 ML IV SCH (08:10)
[2025-04-07] MEDS: FUROSEMIDE 20 MG/2 ML VIAL IV SCH (11:37)
[2025-04-07] MEDS: POTASSIUM CHLORIDE 10 MEQ/50 ML PREMIXED IVPB FOR PERIPHERAL LINE IV SCH (11:37)
[2025-04-07] MEDS: PPN IV SCH (12:34)
[2025-04-07] MEDS: DIGOXIN INJ 0.5 MG/2 ML AMPUL IV SCH (13:29)
[2025-04-08] VITALS (31 sets, daily range): BP systolic 92–127; BP diastolic 57–81; TEMP 97.9–98.1; O2SAT 95–100
[2025-04-08 05:24] LABS: PLATELET COUNT (AUTO) 423 K/uL (150-450); RED BLOOD CELL COUNT(AUTO) 3.26 MIL/uL (4.0-5.2); RED CELL DISTRIBUTION WIDTH 14.6 % (11.5-15.0); WHITE BLOOD COUNT (AUTO) 14.4 K/uL (4.3-11.0)
[2025-04-08 05:29] LABS: CALCIUM, SERUM 8.8 mg/dL (8.5-10.1); CREATININE 1.1 mg/dL (0.6-1.3); PHOSPHORUS 2.6 mg/dL (2.5-4.9); SODIUM SERUM 140.0 mmol/L (136-145); UREA NITROGEN, BLOOD 35.0 mg/dL (7-18)
[2025-04-08] MEDS: PPN IV SCH (10:49)
[2025-04-08] MEDS ORDERED: DILTIAZEM HCL IV 125 MG in IV NS 0.9% 100 ML IV PRN (17:30)
[2025-04-08] MEDS: PANTOPRAZOLE 40 MG VIAL IV SCH (20:34)
[2025-04-08] MEDS: METOPROLOL TARTRATE INJ 5 MG/5 ML AMPUL IVP SCH (20:42)
[2025-04-09] VITALS (24 sets, daily range): BP systolic 107–132; BP diastolic 61–80; TEMP 97.8–98; O2SAT 98–100
[2025-04-09 04:24] LABS: PLATELET COUNT (AUTO) 308 K/uL (150-450); RED BLOOD CELL COUNT(AUTO) 3.11 MIL/uL (4.0-5.2); RED CELL DISTRIBUTION WIDTH 14.3 % (11.5-15.0); WHITE BLOOD COUNT (AUTO) 11.0 K/uL (4.3-11.0)
[2025-04-09 04:34] LABS: CALCIUM, SERUM 7.6 mg/dL (8.5-10.1); CREATININE 0.9 mg/dL (0.6-1.3); PHOSPHORUS 2.2 mg/dL (2.5-4.9); SODIUM SERUM 137.0 mmol/L (136-145); UREA NITROGEN, BLOOD 32.0 mg/dL (7-18)
[2025-04-09] MEDS: POTASSIUM CL. PREMIX PERIPHER. 50 ML IV SCH (05:09)
[2025-04-09] MEDS: Magnesium 1GM/D5W 100ML PREMIX 100 ML IV SCH (05:09)
[2025-04-09] MEDS: PPN IV SCH (09:03)
[2025-04-09] MEDS: Sodium Phosphate 15 MMOL in IV NS 0.9% 245 ML IV SCH (11:32)
[2025-04-10] MEDS ORDERED: PPN IV SCH (08:11)
== END 2025-04-09 19:37 | disposition short-term general hospital (02) | DRG 853 ==
LOC: ER 21:12 → TELE 23:08 → ICU 03-19 02:40 → TELE1 03-28 20:25 → TELE-TD 04-05 08:19 → ICUOV 04-06 16:37 → ICU 04-06 19:42
PROVIDERS: ADMIT Nurse Practitioner Acute Care; ATTEND Student in an Organized Health Care Education/Training Program
PROC: 0W9G00Z Drainage of Peritoneal Cavity with Drainage Device, Open Approach (ICD-10-PCS; 2025-03-19)
PROC: 0DQ90ZZ Repair Duodenum, Open Approach (ICD-10-PCS; principal; 2025-03-19 02:00)
PROC: 02HV33Z Insertion of Infusion Device into Superior Vena Cava, Percutaneous Approach (ICD-10-PCS; 2025-04-06)
PROC: B548ZZA Ultrasonography of Superior Vena Cava, Guidance (ICD-10-PCS; 2025-04-06)
DX: A41.9 Sepsis, unspecified organism (principal); J96.01 Acute respiratory failure with hypoxia; K26.6 Chronic or unspecified duodenal ulcer with both hemorrhage and perforation; K65.9 Peritonitis, unspecified; I16.1 Hypertensive emergency; I13.0 Hypertensive heart and chronic kidney disease with heart failure and stage 1 through stage 4 chronic kidney disease, or unspecified chronic kidney disease; K56.7 Ileus, unspecified; E46 Unspecified protein-calorie malnutrition; E87.20 Acidosis, unspecified; N39.0 Urinary tract infection, site not specified; G93.40 Encephalopathy, unspecified; E87.1 Hypo-osmolality and hyponatremia; K56.609 Unspecified intestinal obstruction, unspecified as to partial versus complete obstruction; K66.8 Other specified disorders of peritoneum; R65.20 Severe sepsis without septic shock; I25.10 Atherosclerotic heart disease of native coronary artery without angina pectoris; F03.90 Unspecified dementia, unspecified severity, without behavioral disturbance, psychotic disturbance, mood disturbance, and anxiety; M19.90 Unspecified osteoarthritis, unspecified site; N18.9 Chronic kidney disease, unspecified; D64.9 Anemia, unspecified; E03.9 Hypothyroidism, unspecified; E86.9 Volume depletion, unspecified; I48.0 Paroxysmal atrial fibrillation; I50.9 Heart failure, unspecified; K59.81 Ogilvie syndrome; M81.0 Age-related osteoporosis without current pathological fracture; R13.10 Dysphagia, unspecified; Z90.49 Acquired absence of other specified parts of digestive tract; Z99.3 Dependence on wheelchair; Z88.2 Allergy status to sulfonamides; E87.6 Hypokalemia; E88.09 Other disorders of plasma-protein metabolism, not elsewhere classified; R79.89 Other specified abnormal findings of blood chemistry; M89.8X9 Other specified disorders of bone, unspecified site; E87.70 Fluid overload, unspecified
CPT/HCPCS: 36415; 36569; 71045-TC; 74018; 74246-TC; 74250-TC; 76770-TC; 80048-TC; 80053-TC; 80076-TC; 81001; 82550-TC; 82553; 82570-TC; 82962-TC; 83605-TC; 83690-TC; 83735-TC; 83880; 83970; 84100-TC; 84155; 84165; 84300-TC; 84443-TC; 84478-TC; 84484-TC; 85025-TC; 85027-TC; 85610-TC; 85730-TC; 86803; 86850-TC; 87040-TC; 87081-TC; 87086-TC; 87806; 92526; 92611; 93307-TC; 93970-TC; 94760-TC; 94762-TC; 94799-TC; 97110-TC; 97112-TC; 97530-TC; A4216; A4217; A4223; A6213; A6253; A6254; A6403; A9563; G0378; J0282; J0360; J1160; J1171; J1450; J1650; J1815; J1938; J2248; J2250; J2270; J2405; J2470; J2543; J2704; J2765; J3010; J3475; J3480; J3490; J7030; J7040; J7042; J7050; J7060; P9045; Q9963; Q9967